=== PATIENT | female | born 1965 | race Caucasian/White ===

== ENCOUNTER → 2016-10-07 | Outpatient (CLI) | payer OTHER ==
--- NOTE | 2016-10-07 17:18 | Diagnostic Imaging Report ---
Bilateral screening mammogram. The current study was also evaluated with a Computer Aided Detection (CAD) system. INDICATION: Screening. No current complaints stated on the questionnaire. COMPARISON: 08/14/2015. FINDINGS: The breasts are composed of scattered fibroglandular densities. There are scattered benign-appearing calcifications. Allowing for technique and positional differences, no suspicious change is seen. IMPRESSION: No significant change. ACR BI-RADS Category 2: Benign findings. Result letter will be mailed to the patient. Note: At least 10% of breast cancer is not imaged by mammography. Dictated by: Dictated on workstation # [id number]
== END ==
LOC: RAD 11:15
PROVIDERS: ATTEND Internal Medicine
DX: Z12.31 Encounter for screening mammogram for malignant neoplasm of breast (principal)
CPT/HCPCS: 77067

== ENCOUNTER 2016-10-23 05:32 | Outpatient (CLI) | payer OTHER ==
[~2016-10-23] VITALS: Ht 160 cm; Wt 79.4 kg
[2016-10-23] MEDS ORDERED: hormone cream TOP (11:05)
[2016-10-23] MEDS ORDERED: OMG1KC PO (11:05)
[2016-10-23] MEDS ORDERED: [UNRECOGNIZED DRUG - OTHER] PO (11:05)
[2016-10-23] MEDS ORDERED: VITA1TAB17 PO (11:05)
[2016-10-23] MEDS ORDERED: CHOL10003 PO (11:05)
[2016-10-23] MEDS ORDERED: MAGN250T13 PO (11:05)
== END 2016-10-23 11:06 ==
LOC: PREOP 05:32
PROVIDERS: ATTEND Internal Medicine
DX: Z01.818 Encounter for other preprocedural examination (principal); Z12.11 Encounter for screening for malignant neoplasm of colon

== ENCOUNTER 2016-10-25 06:53 | Day surgery (SDC) | payer OTHER ==
--- NOTE | 2016-10-10 18:07 | HISTORY AND PHYSICAL ---
DATE OF SERVICE: 10/25/2016 The patient is a 51-year-old white female referred by Dr. Green for a screening colonoscopy. She seems to be of average risk. She is not aware of any family history for colon cancer. She does have a sister and an aunt who have been diagnosed with breast cancer postmenopausal. She denies diarrhea, constipation, bright red blood per rectum, melena, or abdominal pain. Her weight has been stable. PAST MEDICAL HISTORY: Has been relatively unremarkable. She did have history of reflux related lower esophageal stricture requiring dilatation per Dr. Hoffman in 2010. She currently denies recurrence of dysphagia and is not on acid blocking medication at this time. She denies any significant problems with heart burn. PAST SURGICAL HISTORY; Significant for total abdominal hysterectomy for benign reasons over 10 years ago, she has had bunion surgery in the distant past and has had a section. 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 She has no past smoking history and reports minimal alcohol intake. FAMILY HISTORY: As noted in the HPI. PHYSICAL EXAMINATION: Pleasant white female roughly 5 feet tall and weighing 180.4 pounds. Blood pressure is 136/88. Oral cavity reveals a Mallampati class II pharyngeal configuration. No erythema is noted. CHEST: Clear. CARDIOVASCULAR: Reveals regular rate and rhythm without murmur, S3 or S4. ABDOMEN: Soft, supple without mass, organomegaly or tenderness. EXTREMITIES: Reveal no cyanosis, clubbing or edema. ASSESSMENT: The patient was set up for screening colonoscopy on 10/25. Preop instructions of the SUPREP kit were given and questions were answered. I thank you for the referral of this pleasant lady. With review of this patient's electronic medical record in addition to the above evaluation a little over 45 minutes of care was spent by myself with other 15 minutes of staff time setting up colonoscopy and going over prep instructions. Job ID: [id number] DocumentID: [id number] Dictated Date: 10/10/2016 17:31:25 Microstrategy Developer Date: 10/10/2016 18:06:42 Dictated By: NEERAJ PEREYRA MD
[~2016-10-25] VITALS: Ht 160 cm; Wt 79.4 kg
[~2016-10-25 06:53] MED LIST: CHOL10003 PO; MAGN250T13 PO; OMG1KC PO; VITA1TAB17 PO; [UNRECOGNIZED DRUG - OTHER] PO; hormone cream TOP
[2016-10-25] MEDS ORDERED: 1/2 NS IV SOLUTION 1,000 ML IV STA (07:17)
[2016-10-25 07:19] VITALS: BP 131/88
[2016-10-25] MEDS ORDERED: FLUMAZENIL (ROMAZICON) 0.1 MG/ML 5 ML VIAL INJ PRN (07:30)
[2016-10-25] MEDS ORDERED: NALOXONE 0.4 MG/ML 1 ML (NARCAN) VIAL IVP PRN (07:30)
[2016-10-25] MEDS ORDERED: LIDOCAINE JELLY 2% (XYLOCAINE) 5 ML TUBE MM PRN (07:30)
--- NOTE | 2016-10-25 07:47 | Pre-Op Note & Conscious Sedat ---
Pre-Operative Progress Note H&P Reviewed The H&P was reviewed, patient examined and no changes noted. Date H&P Reviewed: October 25, 2016 Time H&P Reviewed: 07:47 Conscious Sedation Pre-Proced ASA Class: 1 Airway Mallampati Classification: ([place] appropriate class) I. II. III, IV Lungs Heart ASA score ASA 1: a normal healthy patient ASA 2: a patient with a mild systemic disease (mid diabetes, controlled hypertension, obesity ASA 3: a patient with a severe systemic disease that limits activity (angina , COPD, prior Myocardial infarction) ASA 4: a patient with an incapacitating disease that is a constant threat to life (CHF, renal failure) ASA 5: a moribund patient not expected to survive 24 hrs. (ruptured aneurysm) ASA 6: a declared brain patient whose organs are being harvested. For emergent operations, add the letter E after the classification Grade 2 Sedation Plan: Analgesia, Amnesia, Plan communicated to team members, Discussed options with patient/fam, Discussed risks with patient/fam Note The patient is an appropriate candidate to undergo the planned procedure, sedation, and anesthesia. The patient immediately re-assessed prior to indication. NEERAJ PEREYRA MD October 25, 2016 07:47
[2016-10-25] MEDS ORDERED: LIDOCAINE JELLY 2% (XYLOCAINE) 5 ML TUBE ONE (07:55)
[2016-10-25] MEDS ORDERED: fentaNYL INJECTION 100 MCG/2 ML AMP ONE ×2 (07:55→07:56)
[2016-10-25] MEDS ORDERED: MIDAZOLAM 2 MG/2 ML (VERSED) VIAL ONE ×2 (07:56)
[2016-10-25] MEDS: fentaNYL INJECTION 100 MCG/2 ML AMP IVP PRN ×2 (08:05→08:08)
[2016-10-25] MEDS: MIDAZOLAM 2 MG/2 ML (VERSED) VIAL IVP PRN ×2 (08:06→08:10)
[2016-10-25 08:45] VITALS: BP 113/74
[2016-10-25 09:10] VITALS: BP 129/93
[2016-10-25 10:16] VITALS: BP 129/93
--- NOTE | 2016-10-25 15:00 | OPERATIVE REPORT ---
DATE OF SERVICE: COLONOSCOPY SUMMARY The patient was placed in the left lateral decubitus position. Prior to doing screening colonoscopy, digital rectal evaluation was performed. Anal sphincter tone was normal. The perianal reflex is intact. Present that what corresponded to the dentate line was a polypoidal-type growth. Visualization was compatible with a prominent papilla versus benign anal papilloma. There was no evidence to suggest underlying neoplasia. No internal or external hemorrhoids were noted. The rectum, sigmoid colon, descending colon, transverse colon, ascending colon and cecum were unremarkable. No evidence for diverticular disease or vascular malformation or inflammatory change was noted. ASSESSMENT: No evidence for neoplasia was noted on today's evaluation. At the 12 o'clock position at about the level of the dentate line, was a 0.5 cm nodule with appearance compatible with either a prominent anal papilla or benign anal papilloma. No further therapy required. Would consider repeat screening colonoscopy in 10 years as the patient is not aware of any family history for colon cancer. I thank you for the referral of this pleasant lady. Sincerely Job ID: [id number] DocumentID: [id number] Dictated Date: 10/25/2016 11:36:56 Statuary Painter Date: 10/25/2016 15:00:33 Dictated By: NEERAJ PEREYRA MD MTDD
== END 2016-10-25 09:50 | disposition home or self-care (01) ==
LOC: ENDO 06:53
PROVIDERS: ATTEND Internal Medicine
DX: Z12.11 Encounter for screening for malignant neoplasm of colon (principal); D12.9 Benign neoplasm of anus and anal canal

== ENCOUNTER → 2017-10-23 | Outpatient (CLI) | payer OTHER ==
--- NOTE | 2017-10-23 18:43 | Diagnostic Imaging Report ---
INDICATION: Routine screening. COMPARISON: Comparison is made with prior mammograms from 10/07/2016 and 08/14/2015. TECHNIQUE: 2D and 3D bilateral screening mammography was performed with computer-aided detection (CAD) system. FINDINGS: Scattered fibroglandular densities are identified bilaterally. The parenchymal pattern is stable. No dominant mass or malignant appearing microcalcifications are seen. The axillae are unremarkable. IMPRESSION: No mammographic features suspicious for malignancy are identified. ACR BI-RADS Category 1: Negative. Result letter will be mailed to the patient. Note: At least 10% of breast cancer is not imaged by mammography. Dictated by: Dictated on workstation # [id number]
== END ==
LOC: RAD 13:31
PROVIDERS: ATTEND Internal Medicine
DX: Z12.31 Encounter for screening mammogram for malignant neoplasm of breast (principal)
CPT/HCPCS: 77067

== ENCOUNTER 2018-06-30 06:02 | Outpatient (CLI) | payer OTHER ==
[~2018-06-30] VITALS: Ht 160 cm; Wt 74.4 kg
== END 2018-06-30 13:14 | disposition home or self-care (01) ==
LOC: PREOP 06:02
PROVIDERS: ATTEND Podiatrist Foot & Ankle Surgery
DX: Z01.818 Encounter for other preprocedural examination (principal)

== ENCOUNTER → 2018-12-14 | Outpatient (CLI) | payer BC, OTHER ==
--- NOTE | 2018-12-15 15:25 | Diagnostic Imaging Report ---
INDICATION: Routine screening. COMPARISON: 10/24/2017 and 10/08/2016. TECHNIQUE: 2D and 3D bilateral screening mammography was performed with CAD. FINDINGS: Scattered fibroglandular densities are identified bilaterally. Benign appearing nodular densities in the right breast are stable. No new mass or malignant appearing microcalcifications are seen. The axillae are unremarkable. IMPRESSION: No mammographic features suspicious for malignancy are identified. ACR BI-RADS Category 2: Benign findings. Result letter will be mailed to the patient. Note: At least 10% of breast cancer is not imaged by mammography. Dictated by: Dictated on workstation # [id number]
== END ==
LOC: RAD 14:41
PROVIDERS: ATTEND Internal Medicine
DX: Z12.31 Encounter for screening mammogram for malignant neoplasm of breast (principal)
CPT/HCPCS: 77067

== ENCOUNTER 2019-02-05 15:20 | Outpatient (RCR) | payer BC ==
[2019-01-29 15:15] VITALS: BP 137/88
[2019-01-29] MEDS: FERRIC CARBOXYMALTOSE INJ 750 MG in NS (IVPB) 250 ML IV SCH (15:50)
[~2019-02-05] VITALS: Ht 160 cm; Wt 74.4 kg
[2019-02-05] MEDS: FERRIC CARBOXYMALTOSE INJ 750 MG in NS (IVPB) 250 ML IV SCH (15:35)
[2019-02-05 16:13] VITALS: BP 134/79
[2019-02-05 16:15] VITALS: BP 134/79
== END 2019-02-05 16:15 | disposition home or self-care (01) ==
LOC: SDC 15:20
PROVIDERS: ATTEND Internal Medicine
DX: D50.9 Iron deficiency anemia, unspecified (principal)

== ENCOUNTER 2019-07-27 05:29 | Outpatient (CLI) | payer BC ==
[~2019-07-27] VITALS: Ht 160 cm; Wt 84.5 kg
[2019-07-27] MEDS ORDERED: CHOL500061 PO (13:49)
== END 2019-07-27 14:07 | disposition home or self-care (01) ==
LOC: PREOP 05:29
PROVIDERS: ATTEND Podiatrist Foot & Ankle Surgery
DX: Z01.818 Encounter for other preprocedural examination (principal)

== ENCOUNTER 2019-08-02 06:16 | Day surgery (SDC) | payer BC ==
--- NOTE | 2019-07-24 15:53 | History & Physical ---
History of Present Illness HPI/Chief Complaint CC: Left foot surgery scheduled for 08/02/[address] Carrera HPI: This is a 54yoWF clinic patient of mine for 15 years who is very healthy and is compliant with yearly check ups and is preparing for left foot surgery to correct hammer toes and other modifications due to severe pain unresolved with conservative measures. Surgical benefits outweigh medical risks and it is prudent to proceed on with surgery as scheduled. Source: patient Exam Limitations: no limitations Date Seen 07/19/19 Time Seen by a Provider: 15:00 Attending Physician Alexandra Carrera Dpkathrine PCP Maribeth Green DO Referring Physician Date of Admission Home Medications & Allergies Home Medications Reviewed patient Home Medication Reconciliation performed by pharmacy medication reconciliations photonics engineering technician and/or nursing. Patients Allergies have been reviewed. Allergies Allergies Coded Allergies No Known Drug Allergies (Verified10/25/16) Past Vfatytb-Wogujn-Pzdsif Hx Past Med/Social Hx: Reviewed Nursing Past Med/Soc Hx, Reviewed and Corrections made Patient Social History Marrital Status: Employed/Student: employed Alcohol Use: Denies Use Smoking Status: Never a Smoker 2nd Hand Smoke Exposure: No Recent Hopitalizations: No Seasonal Allergies Seasonal Allergies: Yes Past Medical History Surgeries: Hysterectomy Hysterectomy alopecia History of Blood Disorders: No Review of Systems Constitutional: see HPI Musculoskeletal: other (left foot pain) Physical Exam Physical Exam Vital Signs Capillary Refill : Height, Weight, BMI Height: 5'3.00" Weight: 164lbs. 0.0oz. 74.356647po; 29.1 BMI Method: General Appearance: No Apparent Distress, WD/WN Eyes: Bilateral Eye Normal Inspection, Bilateral Eye PERRL HEENT: PERRL/EOMI, TMs Normal, Normal ENT Inspection, Pharynx Normal Neck: Full Range of Motion, Normal Inspection, Non Tender, Supple, Carotid Bruit Respiratory: Chest Non Tender, Lungs Clear, Normal Breath Sounds, No Accessory Muscle Use, No Respiratory Distress Cardiovascular: Regular Rate, Rhythm, No Edema, No Gallop, No JVD, No Murmur, Normal Peripheral Pulses Gastrointestinal: Normal Bowel Sounds, No Organomegaly, No Pulsatile Mass, Non Tender, Soft Back: Normal Inspection, No CVA Tenderness, No Vertebral Tenderness Extremity: Normal Capillary Refill, Normal Inspection, Normal Range of Motion, Non Tender, No Calf Tenderness, No Pedal Edema Neurologic/Psychiatric: Alert, Oriented x3, No Motor/Sensory Deficits, Normal Mood/Affect Skin: Normal Color, Warm/Dry Lymphatic: No Adenopathy Results Results/Procedures Labs Patient resulted labs reviewed. Assessment/Plan Admission Diagnosis Assessment: Right foot pain due to hammer toes in need of surgical correction per Dr Carrera 08/02/19 Chronic alopecia Plan: Proceed with surgery since surgical benefits outweigh medical risks Admission Status: Observation Diagnosis/Problems Diagnosis/Problems (1) Hallux valgus of left foot (2) Degenerative joint disease of left foot MARIBETH GREEN DO Jul 24, 2019 15:53
[~2019-08-02] VITALS: Ht 160 cm; Wt 84.5 kg
[2019-08-02] VITALS (11 sets, daily range): BP systolic 103–144; BP diastolic 67–89
[~2019-08-02 06:16] MED LIST changes: +CHOL500061 PO
[2019-08-02] MEDS ORDERED: LACTATED RINGERS 1,000 ML IV PRN (06:19)
[2019-08-02] MEDS ORDERED: ceFAZolin INJECTION 1,000 MG in WATER (STERILE) FOR INJECTION 10 ML IV ONE (06:30)
[2019-08-02] MEDS ORDERED: fentaNYL INJECTION 100 MCG/2 ML AMP ONE ×2 (07:12→09:37)
[2019-08-02] MEDS ORDERED: proPOfol 200 MG/20 ML (DIPRIVAN) VIAL IV ONE (07:12)
[2019-08-02] MEDS ORDERED: LIDOCAINE PF 2% 5 ML (XYLOCAINE) VIAL ONE (07:12)
[2019-08-02] MEDS ORDERED: SEVOFLURANE (ULTANE) 15 ML INHAL SOLN ONE ×11 (07:12→09:53)
[2019-08-02] MEDS ORDERED: DEXAMETHASONE 10 MG/ML (DECADRON) 1 ML VIAL ONE (07:12)
[2019-08-02] MEDS ORDERED: ONDANSETRON 4 MG/2 ML (SDV) Z0FRAN ONE (07:12)
[2019-08-02] MEDS ORDERED: MIDAZOLAM 2 MG/2 ML (VERSED) VIAL ONE (07:12)
[2019-08-02] MEDS ORDERED: BUPIVACAINE 0.5% 30 ML (SENSORCAINE) VIAL ONE (07:19)
[2019-08-02] MEDS ORDERED: LIDOCAINE 1% INJ 20 ML 20 ML VIAL ONE (07:19)
--- NOTE | 2019-08-02 07:39 | Progress Note-Pre Operative ---
Pre-Operative Progress Note H&P Reviewed The H&P was reviewed, patient examined and no changes noted. Date Seen by Provider: Aug 02, 2019 Time Seen by Provider: 07:39 Date H&P Reviewed: Aug 02, 2019 Time H&P Reviewed: 07:39 Pre-Operative Diagnosis: Hallux Rigidus, 2nd Hammertoe, left RODNEY,AMBERLY Q DPM Aug 02, 2019 07:39
[2019-08-02] MEDS ORDERED: LACTATED RINGERS 1,000 ML IV SCH (10:44)
--- NOTE | 2019-08-02 10:44 | Progress Note-Post Operative ---
Post-Operative Progess Note Surgeon (s)/Graphic Art Sales Representative (s) Surgeon AMBRELY STEVENS DPM Graphic Art Sales Representative: None Pre-Operative Diagnosis Hallux Rigidus, 2nd Hammertoe, left Post-Operative Diagnosis Same with failed hardware, left Procedure & Operative Findings Date of Procedure 08/02/19 Procedure Performed/Findings Removal of hardware, Arthrodesis of 1st MTPJ, 2nd toe reduction of Hammertoe, left foot Anesthesia Type General Estimated Blood Loss Estimated blood loss (mL): Minimal Specimens/Packing Specimens Removed None AMBERLY STEVENS DPM Aug 02, 2019 10:44
[2019-08-02] MEDS ORDERED: MEPERIDINE (DEMEROL) INJ 50 MG/ML IVP ONE (10:45)
[2019-08-02] MEDS ORDERED: ONDANSETRON 4 MG/2 ML (SDV) Z0FRAN IVP PRN (10:45)
[2019-08-02] MEDS ORDERED: morphine INJ 10 MG/ML 1ML (SYR OR VIAL) IVP ONE (10:45)
[2019-08-02] MEDS ORDERED: HYDROcodone/APAP 5 MG/325 MG (LORTAB) TAB PO PRN (10:45)
[2019-08-02] MEDS ORDERED: CEPH500C PO (10:47)
[2019-08-02] MEDS ORDERED: ACHD5005 PO ×2 (10:47→12:06)
--- NOTE | 2019-08-02 11:24 | Diagnostic Imaging Report ---
INDICATION: Postop changes to the foot. COMPARISON: None. FINDINGS: Two radiographic views of the left foot were obtained and show postsurgical changes of hallux valgus repair. Orthopedic side plate and screws are seen traversing the first metatarsal and proximal phalanx across the metatarsophalangeal joint space. Underlying osteotomy changes are noted. Ángel wires are also seen traversing the second toe. No unexpected radiopaque foreign bodies are identified. Degenerative changes of the tarsometatarsal joint spaces are present. IMPRESSION: 1. Postsurgical changes of the left foot as described above. Dictated by: Dictated on workstation # [id number]
[2019-08-02] MEDS ORDERED: HYDROcodone/APAP 5 MG/325 MG (LORTAB) TAB ONE (11:52)
--- NOTE | 2019-08-02 12:56 | Anesthesia-General Post-Op ---
General Patient Condition Mental Status/LOC: Same as Preop Cardiovascular: Satisfactory Nausea/Vomiting: Absent Respiratory: Satisfactory Pain: Controlled Complications: Absent Post Op Complications Complications None Follow Up Care/Instructions Patient Instructions None needed. Anesthesia/Patient Condition Patient Condition Patient is doing well, no complaints, stable vital signs, no apparent adverse anesthesia problems. No complications reported per nursing. CRYS MCKAY CRNA Aug 02, 2019 12:56
--- NOTE | 2019-08-02 16:11 | OPERATIVE REPORT ---
DATE OF SERVICE: 08/02/2019 SURGEON: Alexandra Carrera DPM PREOPERATIVE DIAGNOSES: 1. Hallux rigidus, left foot. 2. Hammer digit syndrome, left second digit. POSTOPERATIVE DIAGNOSES: 1. Hallux rigidus, left foot. 2. Hammer digit syndrome, left second digit. 3. Failed hardware. PROCEDURE: 1. Arthrodesis of the left first metatarsophalangeal joint. 2. Reduction of hammertoe, left second digit. 3. Removal of hardware, left first ray. WOUND CLASS: Clean. ANESTHESIA: General. HEMOSTASIS: Pneumatic thigh tourniquet at 250 mmHg. INDICATIONS: This 54-year-old female presents complaining of pain to the left foot. Conservative therapy is met with unsatisfactory results and the patient is agreeable to surgical intervention after risks and complications were discussed at length. No guarantees were extended to the patient and she is willing to proceed. DESCRIPTION OF PROCEDURE: The patient was brought back to the operating table, placed in secure supine position. Appropriate timeout was performed. Pneumatic thigh tourniquet was placed on the left lower extremity over several layers of padding. A general anesthetic was then induced. Local anesthetic was also administered utilizing aseptic technique and a Beebe block and a digital block to second toe utilizing 10 mL of 1:1 mixture of 1% Xylocaine, 0.5% Marcaine. The left foot was then prepped and draped in normal sterile manner. The left foot was then elevated, allowed to exsanguinate after which the tourniquet was inflated to 250 mmHg. Attention was then directed to the dorsal aspect of the left first metatarsophalangeal joint where a 6 cm longitudinal linear incision was created. The incision was deepened in the same plane with great care to identify and retract all vital neurovascular structures. Only necessary blood vessels were cauterized as encountered. The incision was deepened down to the capsular tissue where a longitudinal capsulotomy was performed. This demonstrated a subluxed left first metatarsophalangeal joint. Utilizing a power sagittal saw, power bur and rongeur, the dorsal medial eminence to the first metatarsal head were reduced as well as the dorsal, medial and lateral aspect of the base of the proximal phalanx. Extensor hallucis longus tendon lengthening was needed to be performed to allow for realignment of the first ray. A Z slide lengthening was performed at this time. Next, utilizing the [employer] surgical Gridlock plating system, the arthrodesis was performed to the left first metatarsophalangeal joint. First the guidewire was driven down the first metatarsal from the metatarsal head proximally for the cup and cone instrumentation allowing for exact articulation of the first metatarsophalangeal joint. Next, a fenestration was performed with a 1 mm drill bit to the first metatarsal head and base of the proximal phalanx. Next, a petite stepped metatarsophalangeal joint Gridlock plate from [employer] was then applied to the dorsal aspect of the first metatarsophalangeal joint, after which screws of 3.0 locking and unlocking were applied. First, the first screws were of 20, 16, and 10 mm. Once the digit was in alignment, the proximal screws were the most proximal was a 20, two nonlocking screw placed in the compression hole, after which the remaining proximal screws were a two 20 mm of length 3.0 locking screws. Excellent bony apposition and fixation was appreciated at this time. The wound was flushed with copious amounts of normal saline and closure was then performed. However, prior to closure and even the application of the current hardware, it was evident that the previous hardware was in the way would prevent appropriate alignment of the plating system. This warranted a removal of the K wire to the first metatarsal head as well as the 28-gauge monofilament wire to the base of the proximal phalanx. The wound was flushed once again after which closure was performed in layers. Deep closure was performed with 3-0 Vicryl, superficial with 4-0 Vicryl, skin closed with 4-0 Prolene in a horizontal mattress type stitch. Attention was then directed to the dorsal aspect of the left second toe where there is some lateral deviation noted at the middle phalanx. An incision from the proximal interphalangeal joint to the distal interphalangeal joint for approximately 1.5 cm was performed. The incision deepened down to the extensor tendon where a Z slide lengthening was performed. Periosteal dissection was carried out to the proximal arch to the middle phalanx where a wedge of bone was resected with the base medial and the lateral cortices was down to zero cut. After this wedge of bone was removed, the digit was now in appropriate alignment. The wound was flushed with copious amounts of normal saline. A 0.054 K wire was driven down the digit, securing the osteotomy in a closed position. Deep closure was then performed with 4-0 Vicryl, superficial with 4-0 Vicryl, skin closure with 4-0 Prolene in a horizontal mattress type stitch. Tourniquet was released noting appropriate cap refill time to all digits of the left foot. Postoperative injection consisted of 10 mL of 1:1 mixture of 1% Xylocaine, 0.5% Marcaine injected in local infusion to the surgical sites. Postoperative dressing consisted of Betadine soaked Adaptic, sterile 4 x 4, sterile Kerlix all secured with a Coban wrap. The patient tolerated the anesthesia and procedure well, was transported from the operating room to the recovery area with vital signs stable and vascular status intact to all digits of the left foot. She is to follow up in my office in 10 days' period of time or sooner if necessary. Job ID: [id number] DocumentID: [id number] Dictated Date: 08/02/2019 11:03:12 Truck Jumper Date: 08/02/2019 16:11:25 Dictated By: ALYCIA JACINTO
== END 2019-08-02 12:37 | disposition home or self-care (01) ==
LOC: SDC 06:16
PROVIDERS: ATTEND Podiatrist Foot & Ankle Surgery
DX: T84.84XA Pain due to internal orthopedic prosthetic devices, implants and grafts, initial encounter (principal); M20.22 Hallux rigidus, left foot; M20.42 Other hammer toe(s) (acquired), left foot; M19.072 Primary osteoarthritis, left ankle and foot; K21.9 Gastro-esophageal reflux disease without esophagitis; Z90.710 Acquired absence of both cervix and uterus; Z79.899 Other long term (current) drug therapy
CPT/HCPCS: 73620; 87081

== ENCOUNTER → 2020-03-09 | Outpatient (CLI) | payer BC ==
[~2020-03-09] MED LIST changes: +ACHD5005 PO; +CEPH500C PO
--- NOTE | 2020-03-10 09:42 | Diagnostic Imaging Report ---
INDICATION: Routine screening. COMPARISON is made with prior mammograms from 12/14/2018 and 10/23/2017. 2-D and 3-D bilateral screening mammography was performed with CAD. Scattered fibroglandular densities are identified bilaterally. The parenchymal pattern is stable. Benign nodular densities right breast are stable. There are benign calcifications present. No spiculated mass or malignant appearing microcalcifications are seen. Axillae are unremarkable. IMPRESSION: BI-RADS Category 2 No mammographic features suspicious for malignancy are identified. ACR BI-RADS Category 2: Benign findings. Result letter will be mailed to the patient. Note: At least 10% of breast cancer is not imaged by mammography. Dictated by: Dictated on workstation # [id number]
== END ==
LOC: RAD 14:45
PROVIDERS: ATTEND Internal Medicine
DX: Z12.31 Encounter for screening mammogram for malignant neoplasm of breast (principal)
CPT/HCPCS: 77063; 77067

== ENCOUNTER → 2020-03-28 | Outpatient (CLI) | payer BC ==
--- NOTE | 2020-03-28 13:31 | Diagnostic Imaging Report ---
INDICATION: Postmenopausal COMPARISON: None FINDINGS: The bone mineral density of hips and spine was measured. There are no prior studies for comparison. The T score for the spine is minus -1. This does indicate osteopenia. The total T score for the left hip is -1.4, for the right hip -1.5. The T score for the left femoral neck is -1.5 and for the right femoral neck -1.6. All of these values indicate osteopenia. AP Spine L1-L4: [BMD (g/cm2): 0.987] [T-Score: -1.8] [Z-Score: -1.7] [BMD Previous: NA] [BMD % Change: NA] LT Hip Neck: [BMD (g/cm2): 0.829] [T-Score: -1.5] [Z-Score: -1.0] LT Hip Total: [BMD (g/cm2):0.838] [T-Score:-1.4] [Z-Score: -1.3] [BMD Previous: NA] [BMD % Change: NA] RT Hip Neck: [BMD (g/cm2):0.821] [T-Score:-1.6] [Z-Score:-1.0] RT Hip Total: [BMD (g/cm2):0.818] [T-score:-1.5] [Z-Score:-1.4] [BMD Previous:NA] [BMD % Change:NA] *Indicates significant change from prior examination based on 95% confidence level. World Health Organization criteria for BMD interpretation classify patients as Normal (T-score at or above -1.0), Osteopenic (T-score between -1.0 and -2.5) or Osteoporotic (T-score at or below -2.5). LIMITATIONS AND MODIFICATION: None. FRACTURE RISK (FRAX SCORE): The ten year probability of (%): Major Osteoporotic Fracture: [6.6] Hip Fracture: [0.5] IMPRESSION: 1. There is osteopenia of the spine and the hips and the femoral necks. 2. 3. See below National Osteoporosis Foundation guidelines on when to potentially initiate pharmacologic therapy. Based on the National Osteoporosis Foundation Guidelines, pharmacologic treatment should be initiated in any of the following, unless clinical conditions suggest otherwise: * Any patient with prior fragility fracture of the hip or vertebrae. A spine fracture indicates 5X risk for subsequent spine fracture and 2X risk for subsequent hip fracture. * Osteoporosis (T-score <-2.5). * Postmenopausal women and men age 50 and older with low bone mass/osteopenia (T-score between -1.0 and -2.5) by DXA and 10-year major osteoporotic fracture greater than 20% or a 10-year probability of hip fracture greater than 3%. These fracture risks are supplied above in the FRAX score, if applicable. * Clinician judgement and/or patient preferences may indicate treatment for people with 10-year fracture probabilities above or below these levels. Dictated by: Dictated on workstation # [id number]
== END ==
LOC: RAD 13:00
PROVIDERS: ATTEND Internal Medicine
DX: M85.89 Other specified disorders of bone density and structure, multiple sites (principal)
CPT/HCPCS: 77080

== ENCOUNTER → 2020-04-05 | Outpatient (CLI) | payer BC ==
[~2020-04-05] MED LIST changes: +BARIUM for suspension 96% w/w (Vanilla Silq Medium Density) PO ONE; +BARIUM for suspension 98% w/w (Vanilla Silq High Density) PO ONE
--- NOTE | 2020-04-05 10:29 | Diagnostic Imaging Report ---
INDICATION: Dysphagia. TECHNIQUE: The patient ingested effervescent crystals as well as thin and thick barium and imaging of the esophagus was performed in multiple obliquities. 52 seconds of fluoroscopic time was utilized. FINDINGS: The preliminary radiograph of the chest is unremarkable. The esophagus has a smooth contour. No definite mass is identified. There is a short segment of mild to moderate narrowing of the distal esophagus just proximal to the GE junction. This may represent a mild stricture. No gastroesophageal reflux or hiatal hernia is demonstrated. IMPRESSION: Short segment of mild luminal narrowing of the distal esophagus, suggestive of a mild stricture. No mass lesion is detected. Dictated by: Dictated on workstation # [id number]
== END ==
LOC: RAD 09:00
PROVIDERS: ATTEND Surgery
DX: R13.10 Dysphagia, unspecified (principal)
CPT/HCPCS: 74220

== ENCOUNTER 2020-04-21 05:52 | Outpatient (RCR) | payer BC ==
[~2020-04-21] VITALS: Ht 157.5 cm; Wt 90.0 kg
[~2020-04-21 05:52] MED LIST changes: -BARIUM for suspension 96% w/w (Vanilla Silq Medium Density) PO ONE; -BARIUM for suspension 98% w/w (Vanilla Silq High Density) PO ONE; +FERR160T5 PO; +T COMPOUND PO; +[UNRECOGNIZED DRUG - OTHER] PO
== END 2020-04-21 10:28 | disposition home or self-care (01) ==
LOC: PREOP 05:52
PROVIDERS: ATTEND Surgery
DX: Z01.812 Encounter for preprocedural laboratory examination (principal); R13.10 Dysphagia, unspecified; Z20.828 Contact with and (suspected) exposure to other viral communicable diseases
CPT/HCPCS: 87635

== ENCOUNTER 2020-04-25 09:21 | Day surgery (SDC) | payer BC ==
[~2020-04-25] VITALS: Ht 157 cm; Wt 90.0 kg
[2020-04-25] VITALS (8 sets, daily range): BP systolic 123–145; BP diastolic 70–94
[2020-04-25] MEDS ORDERED: LACTATED RINGERS 1,000 ML IV ONE (09:27)
[2020-04-25] MEDS ORDERED: LACTATED RINGERS 1,000 ML IV STA (09:44)
[2020-04-25] MEDS ORDERED: HURRICAINE EXT TUBE (BENZOCAINE) XX PRN (09:45)
--- NOTE | 2020-04-25 10:19 | Progress Note-Pre Operative ---
Pre-Operative Progress Note H&P Reviewed The H&P was reviewed, patient examined and no changes noted. Date Seen by Provider: Apr 25, 2020 Time Seen by Provider: : Date H&P Reviewed: Apr 25, 2020 Time H&P Reviewed: :18 Pre-Operative Diagnosis: dysphagia LEXY PAYAN DO Apr 25, 2020 10:18
[2020-04-25] MEDS ORDERED: PROPOFOL INJECTION 50 ML IV ONE (10:33)
[2020-04-25] MEDS ORDERED: MIDAZOLAM 2 MG/2 ML (VERSED) VIAL ONE (10:33)
--- NOTE | 2020-04-25 11:07 | Progress Note-Post Operative ---
Post-Operative Progess Note Surgeon (s)/Sales Representative [employer] (s) Surgeon LEXY PAYAN DO Sales Representative [employer]: na Pre-Operative Diagnosis dysphagia Post-Operative Diagnosis antral ulcers, distal esophageal stricture Procedure & Operative Findings Date of Procedure 04/25/20 Procedure Performed/Findings egd c biopsies c dilation to 15 mm distal esophagus Anesthesia Type per senior environmental engineer Estimated Blood Loss Estimated blood loss (mL): none Specimens/Packing Specimens Removed antrum, ge LEXY PAYAN DO Apr 25, 2020 11:07
[2020-04-25] MEDS ORDERED: PANT40TA2 PO (11:08)
--- NOTE | 2020-04-25 11:09 | Discharge Inst-Simple/Standard ---
Discharge Inst-Standard Discharge Medications New, Converted or Re-Newed RX: Transmitted to Pharmacy Patient Instructions/Follow Up Plan of Care/Instructions/FU: 3 weeks Gianna Activity as Tolerated: Yes Discharge Diet: Regular Diet (ulcer diet) LEXY PAYAN DO Apr 25, 2020 11:09
--- NOTE | 2020-04-25 13:23 | Anesthesia-General Post-Op ---
MAC Patient Condition Mental Status/LOC: Same as Preop Cardiovascular: Satisfactory Nausea/Vomiting: Absent Respiratory: Satisfactory Pain: Controlled Complications: Absent Post Op Complications Complications None Follow Up Care/Instructions Patient Instructions None needed. Anesthesiology Discharge Order Discharge Order Patient is doing well, no complaints, stable vital signs, no apparent adverse anesthesia problems. No complications reported per nursing. ANSLEY DENNY CRNA Apr 25, 2020 13:23
--- NOTE | 2020-04-25 15:39 | OPERATIVE REPORT ---
DATE OF SERVICE: 04/25/2020 PREOPERATIVE DIAGNOSIS: Dysphagia. POSTOPERATIVE DIAGNOSIS: Antral ulcers and distal esophageal stricture. SURGEON: Lexy Katz DO. ANESTHESIA: Per BAR TACKER SEWING MACHINE. PROCEDURE PERFORMED: EGD with biopsies and dilatation to 15 mm of distal esophagus. ESTIMATED BLOOD LOSS: None. COMPLICATIONS: None. INDICATIONS FOR PROCEDURE: The patient is a 55-year-old female, who is having some dysphagia symptoms. She understands risks and benefits of the procedure and wished to proceed with the procedure. Consent was signed in the chart. DESCRIPTION OF PROCEDURE: The patient was taken to the endoscopy suite and placed in the left lateral recumbent position. Timeout was performed. Scope was inserted in the mouth, down the esophagus, stomach and into the duodenum without difficulty. There were no polyps, masses or ulcerations within the duodenum. Scope was slowly retracted back into the stomach, where in the antrum, there were multiple small ulcerations. Biopsy was obtained. Scope was retroflexed noting no other pathology. Scope was returned to its normal position, slowly withdrawn to distal esophagus. Biopsy of the GE junction was obtained. A slight stricture short segment in the distal esophagus. This area was dilated up to 15 mm and got a little bit of blood return, therefore, stopped any further dilatation. Scope was then slowly retracted back until completely removed noting no other pathology. The patient tolerated the procedure well without any complications. She was taken to the recovery room in stable condition. RECOMMENDATIONS: The patient was started on Protonix 40 mg daily. If symptoms return or no improvement, we would repeat EGD with further dilatation and reexamination. Job ID: [id number] DocumentID: [id number] Dictated Date: 04/25/2020 11:12:06 Print Line Feeder Date: 04/25/2020 15:37:59 Dictated By: LEXY KATZ DO
== END 2020-04-25 12:00 | disposition home or self-care (01) ==
LOC: ENDO 09:21
PROVIDERS: ATTEND Surgery
DX: K22.2 Esophageal obstruction (principal); K29.50 Unspecified chronic gastritis without bleeding; K31.89 Other diseases of stomach and duodenum; K25.9 Gastric ulcer, unspecified as acute or chronic, without hemorrhage or perforation; K21.9 Gastro-esophageal reflux disease without esophagitis; I10 Essential (primary) hypertension; E07.9 Disorder of thyroid, unspecified; Z79.899 Other long term (current) drug therapy; Z90.710 Acquired absence of both cervix and uterus; Z80.9 Family history of malignant neoplasm, unspecified
CPT/HCPCS: 88305; 88342

== ENCOUNTER 2020-09-04 22:18 | Emergency (ER) | payer BC ==
[~2020-09-04] VITALS: Ht 160 cm; Wt 86.2 kg
[~2020-09-04 22:18] MED LIST changes: +PANT40TA2 PO
[2020-09-04 22:47] LABS: BASOPHILS % (AUTO) 0 % (0-10); EOSINOPHILS # (AUTO) 0.1 10^3/uL (0.0-0.3); EOSINOPHILS % (AUTO) 2 % (0-10); HEMATOCRIT 40 % (35-52); HEMOGLOBIN 13.4 g/dL (11.5-16.0); LYMPHOCYTES # (AUTO) 1.4 10^3/uL (1.0-4.0); LYMPHOCYTES % (AUTO) 44 % (12-44); MEAN CORPUSCULAR HEMOGLOBIN 30 pg (25-34); MEAN CORPUSCULAR HGB CONC 34 g/dL (32-36); MEAN CORPUSCULAR VOLUME 89 fL (80-99); MEAN PLATELET VOLUME 8.8 fL (9.0-12.2); MONOCYTES # (AUTO) 0.3 10^3/uL (0.0-1.0); MONOCYTES % (AUTO) 9 % (0-12); NEUTROPHILS # (AUTO) 1.5 10^3/uL (1.8-7.8); NEUTROPHILS % (AUTO) 46 % (42-75); PLATELET COUNT 231 10^3/uL (130-400); WHITE BLOOD COUNT 3.3 10^3/uL (4.3-11.0)
[2020-09-04 22:54] LABS: ALBUMIN 4.3 GM/DL (3.2-4.5); CHLORIDE 103 MMOL/L (98-107)
[2020-09-04 22:55] LABS: POTASSIUM 3.9 MMOL/L (3.6-5.0); SODIUM 135 MMOL/L (135-145)
[2020-09-04 22:56] LABS: CALCIUM 9.4 MG/DL (8.5-10.1)
[2020-09-04 22:57] LABS: GLUCOSE 116 MG/DL (70-105); TOTAL PROTEIN 7.1 GM/DL (6.4-8.2)
[2020-09-04 22:58] LABS: CARBON DIOXIDE 21 MMOL/L (21-32)
[2020-09-04 22:59] LABS: BILIRUBIN,TOTAL 0.3 MG/DL (0.1-1.0)
[2020-09-04 23:00] LABS: ALKALINE PHOSPHATASE 92 U/L (40-136); CREATININE SERUM 0.73 MG/DL (0.60-1.30); GFR ESTIMATED > 60
[2020-09-04 23:01] LABS: BUN/CREATININE RATIO 12
[2020-09-04 23:03] LABS: ALANINE AMINOTRANSFERASE 28 U/L (0-55); MAGNESIUM 2.1 MG/DL (1.6-2.4)
[2020-09-04 23:04] LABS: CREATINE KINASE 129 U/L (29-168)
[2020-09-04 23:09] LABS: PROTHROMBIN TIME PATIENT 13.3 SEC (12.2-14.7)
[2020-09-04 23:10] LABS: FIBRIN DEGRADATION PRODUCTS < 0.27 UG/ML (0.00-0.49); PARTIAL THROMBOPLASTIN TIME 28 SEC (24-35)
[2020-09-04 23:11] LABS: CREATINE KINASE MB 2.6 NG/ML (<6.6)
[2020-09-04 23:23] LABS: TSH (THYROID ANALYZER) 4.13 UIU/ML (0.35-4.94)
[2020-09-05] MEDS ORDERED: RX-LORAZEPAM (ATIVAN) 0.5 MG TAB PPK#4 PO STA (00:01)
--- NOTE | 2020-09-05 00:03 | ED Cardiac General ---
History of Present Illness General Chief Complaint: Cardiac/General Problems Stated Complaint: HEART PALPITATIONS/ANXIETY ATTACK Nursing Triage Note: c/o intermittant palpatations, blurred vision earlier today, anxiety. Source: patient (SACHA DALEY DO) History of Present Illness Date Seen by Provider: Sep 04, 2020 Time Seen by Provider: 22:32 Initial Comments PT ARRIVES VIA POV FROM HOME STATES SHE HAS BEEN HAVING PALPITATIONS AND FEELING VERY ANXIOUS SINCE AROUND 1400 THIS AFTERNOON HAS BEEN HAVING SYMPTOMS OFF AND ON ALL DAY FEELS LIKE HER HEART IS RACING NO CHEST PAIN NO SHORTNESS OF BREATH NO DIZZINESS NO SYNCOPE NO NAUSEA/VOMITING NO SWEATS NO FEVER OR RECENT ILLNESS, NO COUGH, NO COVID SYMPTOMS OR KNOWN EXPOSURE NO SWELLING IN LEGS/ FEET OR PAIN IN CALVES. STATES HER BLOOD PRESSURE WAS HIGH 168/98, BUT PULSE WAS IN 70'S. DOES NOT TAKE ANY MEDICATIONS FOR BLOOD PRESSURE NO HISTORY OF SIMILAR NO CHANGE IN MEDICATIONS PT DID HAVE BRACES PUT ON FOR THE FIRST TIME ON FRIDAY, AND IS CAUSING HER MUCH STRESS AND ANXIETY DUE TO DIFFICULTY EATING, ETC. (SACHA DALEY DO) Allergies and Home Medications Allergies Coded Allergies: No Known Drug Allergies (Verified , 10/25/16) Home Medications Azithromycin 250 Mg Tablet, 250 MG PO UD TAKE 2 TABLETS ON DAY ONE THEN TAKE 1 TABLET DAILY FOR FOUR MORE DAYS Prescribed by: NIKITA GOMEZ on 09/05/20724 Cefdinir 300 Mg Capsule, 300 MG PO BID Prescribed by: NIKITA GOMEZ on 09/05/20 0725 Cholecalciferol (Vitamin D3) 5,000 Unit Tab.rapdis, 5,000 UNIT PO DAILY, (Repo rted) Ferrous Sulfate, Dried 160 Mg Tablet.er, 160 MG PO 3X A WEEK, (Reported) Magnesium Oxide 250 Mg Tablet, 250 MG PO DAILY, (Reported) [place] 3 Polyunsat Fatty Acids 1,000 Mg Cap, 1,000 MG PO DAILY, (Reported) Pantoprazole Sodium 40 Mg Tablet.dr, 40 MG PO DAILY Prescribed by: LEXY PAYAN on 04/25/20 1108 Vitamin B Complex 1 Each Tablet, 1 TAB PO DAILY, (Reported) [T3 And T4 Compound] , PO DAILY, (Reported) [hormone cream] , 1 UNIT TOP DAILY, (Reported) [hormone protect] , 1 TAB PO DAILY, (Reported) Patient Home Medication List Home Medication List Reviewed: Yes (SACHA DALEY DO) Review of Systems Review of Systems Constitutional: no symptoms reported; No chills, No diaphoresis, No dizziness, No fever, No malaise, No weakness EENTM: See HPI; No Ear Pain, No Nose Congestion, No Throat Pain Respiratory: No Symptoms Reported; Denies Shortness of Air Cardiovascular: See HPI; Denies Chest Pain, Denies Edema, Denies Lightheadedness; Palpitations; Denies Syncope Gastrointestinal: No Symptoms Reported; Denies Abdominal Pain, Denies Nausea, Denies Vomiting Genitourinary: No Symptoms Reported Musculoskeletal: no symptoms reported Skin: no symptoms reported Psychiatric/Neurological: See HPI Endocrine: No Symptoms Reported Hematologic/Lymphatic: No Symptoms Reported (SACHA DALEY DO) Past Maydopi-Ryrglw-Jzapcl Hx Past Med/Social Hx: Reviewed and Corrections made (SACHA DALEY DO) Patient Social History Alcohol Use: Rarely Uses Number of Drinks Today: AA Alcohol Beverage of Choice: Beer Smoking Status: Never a Smoker 2nd Hand Smoke Exposure: No Recent Infectious Disease Expo: No Recent Hopitalizations: No (SACHA DALEY DO) Immunizations Up To Date Tetanus Booster (TDap): Unknown (SACHA DALEY DO) Seasonal Allergies Seasonal Allergies: Yes (SACHA DALEY DO) Past Medical History Surgeries: Yes (bunionectomy, ) Hysterectomy, Oophorectomy, Orthopedic Respiratory: No Currently Using CPAP: No Currently Using BIPAP: No Cardiac: No Neurological: No : No Female Reproductive Disorders: Denies 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 0.0oz. 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 Norm as Tested, Other (MILDLY ANXIOUS) Skin: Normal Color, Warm/Dry (THUY,SACHA K DO) Progress/Results/Core Measures Results/Orders Lab Results Laboratory Tests Test 09/04/20 22:35 Range/Units White Blood Count 3.3 L 4.3-11.0 10^3/uL Red Blood Count 4.43 3.80-5.11 10^6/uL Hemoglobin 13.4 11.5-16.0 g/dL Hematocrit 40 35-52 % Mean Corpuscular Volume 89 80-99 fL Mean Corpuscular Hemoglobin 30 25-34 pg Mean Corpuscular Hemoglobin Concent 34 32-36 g/dL Red Cell Distribution Width 12.9 10.0-14.5 % Platelet Count 231 130-400 10^3/uL Mean Platelet Volume 8.8 L 9.0-12.2 fL Immature Granulocyte % (Auto) 0 % Neutrophils (%) (Auto) 46 42-75 % Lymphocytes (%) (Auto) 44 12-44 % Monocytes (%) (Auto) 9 0-12 % Eosinophils (%) (Auto) 2 0-10 % Basophils (%) (Auto) 0 0-10 % Neutrophils # (Auto) 1.5 L 1.8-7.8 10^3/uL Lymphocytes # (Auto) 1.4 1.0-4.0 10^3/uL Monocytes # (Auto) 0.3 0.0-1.0 10^3/uL Eosinophils # (Auto) 0.1 0.0-0.3 10^3/uL Basophils # (Auto) 0.0 0.0-0.1 10^3/uL Immature Granulocyte # (Auto) 0.0 0.0-0.1 10^3/uL Prothrombin Time 13.3 12.2-14.7 SEC INR Comment 1.0 0.8-1.4 Activated Partial Thromboplast Time 28 24-35 SEC D-Dimer < 0.27 0.00-0.49 UG/ML Sodium Level 135 135-145 MMOL/L Potassium Level 3.9 3.6-5.0 MMOL/L Chloride Level 103 98-107 MMOL/L Carbon Dioxide Level 21 21-32 MMOL/L Anion Gap 11 5-14 MMOL/L Blood Urea Nitrogen 9 7-18 MG/DL Creatinine 0.73 0.60-1.30 MG/DL Estimat Glomerular Filtration Rate > 60 BUN/Creatinine Ratio 12 Glucose Level 116 H 70-105 MG/DL Calcium Level 9.4 8.5-10.1 MG/DL Corrected Calcium 9.2 8.5-10.1 MG/DL Magnesium Level 2.1 1.6-2.4 MG/DL Total Bilirubin 0.3 0.1-1.0 MG/DL Aspartate Amino Transf (AST/SGOT) 32 5-34 U/L Alanine Aminotransferase (ALT/SGPT) 28 0-55 U/L Alkaline Phosphatase 92 40-136 U/L Total Creatine Kinase 129 29-168 U/L Creatine Kinase MB 2.6 <6.6 NG/ML Myoglobin 40.9 10.0-92.0 NG/ML Troponin I < 0.028 <0.028 NG/ML B-Type Natriuretic Peptide 17.4 <100.0 PG/ML Total Protein 7.1 6.4-8.2 GM/DL Albumin 4.3 3.2-4.5 GM/DL TSH [place] Testing 4.13 0.35-4.94 UIU/ML (NIKITA GOMEZ) Vital Signs/I&O 09/04/20 09/05/20 22:30 00:06 Temp 36.4 36.3 Pulse 72 71 Resp 16 12 B/P (MAP) 181/97 (125) 137/87 (125) Pulse Ox 98 94 O2 Delivery Room Air Room Air (NIKITA GOMEZ) Blood Pressure Mean: 125 Progress Progress Note : Progress Note UNEVENTFUL ER STAY. NO ARRHYTHMIAS DURING ER STAY. PT DID HAVE SENSATION OF RAPID HEART BEAT, BUT PULSE WAS REGULAR AND PT REMAINED IN NORMAL SINUS RHYTHM WITH RATE IN 70'S THROUGHOUT ER STAY. BLOOD PRESSURE DOWN SIGNIFICANTLY AT DISMISSAL WILL ORDER OUTPATIENT HOLTER MONITOR AND HAVE PT FOLLOW UP WITH DR. LAI FOR FURTHER EVALUATION. (SACHA DALEY DO) Progress Note : Time: 07:25 Progress Note 09/05/20 0700: Report from radiology received of a discrepancy noting a patchy infiltrate overlying the left upper lung which may relate to focal infiltrate versus atelectasis. Appears to be a change compared to prior examinations. Radiographic follow-up recommended in 2 to 3 weeks after appropriate therapy to ensure resolution. 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 Follow-up in [address] Lai for repeat x-ray. Return precautions if her symptoms were worsening. Patient acknowledged understanding. Labs were reviewed. D-dimer negative. No fever but she has had chills and her chronic morning cough. (NIKITA GOMEZ) Initial ECG Impression Date: Sep 04, 2020 Initial ECG Impression Time: 22:41 Initial ECG Rate: 72 Initial ECG Rhythm: Normal Sinus EKG : EKG Time: 23:38 Rhythm: Normal Sinus ECG Comparisson: Unchanged (SACHA DALEY DO) Departure Impression Primary Impression: Palpitations Additional Impressions: Anxiety Pneumonia Qualified Codes: J18.9 - Pneumonia, unspecified organism Labile hypertension Disposition: HOME, SELF-CARE Condition: Improved Departure-Patient Inst. Referrals: JUDY LAI DO (PCP/Family) Primary Care Physician Patient Instructions: Palpitations (DC) Add. Discharge Instructions: CONTINUE YOUR REGULAR MEDICATIONS PRESCRIBED CALL IN THE MORNING TO SCHEDULE HOLTER MONITOR FOLLOW UP WITH DR. LAI THIS WEEK FOR FURTHER CARE, RETURN TO ER IF WORSE All discharge instructions reviewed with patient and/or family. Voiced understanding. Scripts Azithromycin (Azithromycin) 250 Mg Tablet 250 MG PO UD, #6 TAB 0 Refills TAKE 2 TABLETS ON DAY ONE THEN TAKE 1 TABLET DAILY FOR FOUR MORE DAYS Prov: NIKITA GOMEZ 09/05/20 Cefdinir (Cefdinir) 300 Mg Capsule 300 MG PO BID for 10 Days, #20 CAP 0 Refills Prov: NIKITA GOMEZ 09/05/20 SACHA DALEY DO Sep 05, 2020 00:03 NIKITA GOMEZ Sep 05, 2020 07:26
[2020-09-05 00:06] VITALS: BP 137/87
--- NOTE | 2020-09-05 07:22 | Diagnostic Imaging Report ---
INDICATION: Palpitations. COMPARISON: 04/05/2020. TECHNIQUE: Single radiograph of the chest dated 09/04/2020 FINDINGS: The cardiac silhouette is within normal limits in size. No significant pulmonary vascular congestion. Patchy opacities are identified overlying the left upper lung, which appear new from the prior examination. The lungs otherwise appear clear. No pleural effusion. No pneumothorax. No acute osseous abnormality. IMPRESSION: New patchy opacities overlying the left upper lung which may relate to focal infiltrate versus atelectasis. This appears to be a change from the prior examination. Therefore, radiographic follow-up is recommended in 2-3 weeks after appropriate therapy to ensure resolution. Report was faxed and called to [facility] ER, Dr. Patel by gagan at 7:18am. ERICA Gutierrez, was also notified. Dictated by: Dictated on workstation # [id number]
[2020-09-05] MEDS ORDERED: AZIT250T12 PO (07:25)
[2020-09-05] MEDS ORDERED: CEFD300C3 PO (07:25)
== END 2020-09-05 00:06 | disposition home or self-care (01) ==
LOC: EDUNIT# 22:18 → ER 22:20
DX: J18.9 Pneumonia, unspecified organism (principal); F41.9 Anxiety disorder, unspecified
CPT/HCPCS: 36415; 71045; 80053; 82550; 82553; 83735; 83874; 83880; 84443; 84484; 85025; 85379; 85610; 85730; 93005; 93041

== ENCOUNTER → 2021-03-22 | Outpatient (CLI) | payer BC ==
[~2021-03-22] MED LIST changes: +AZIT250T12 PO; +CEFD300C3 PO
--- NOTE | 2021-03-23 14:19 | Diagnostic Imaging Report ---
INDICATION: Routine screening. COMPARISON is made with prior mammogram from 03/09/2020 and 12/14/2018. 2-D and 3-D bilateral screening mammography was performed with CAD. Scattered fibroglandular densities are identified bilaterally. A benign nodule in the upper right breast is stable. There are benign calcifications present. No spiculated mass or malignant-appearing microcalcifications are identified. Axillae are unremarkable. IMPRESSION: BI-RADS Category 2. No mammographic features suspicious for malignancy are identified. ACR BI-RADS Category 2: Benign findings. Result letter will be mailed to the patient. Note: At least 10% of breast cancer is not imaged by mammography. Dictated by: Dictated on workstation # [id number]
== END ==
LOC: RAD 15:34
PROVIDERS: ATTEND Internal Medicine
DX: Z12.31 Encounter for screening mammogram for malignant neoplasm of breast (principal)
CPT/HCPCS: 77063; 77067

== ENCOUNTER → 2022-03-25 | Outpatient (CLI) | payer BC ==
--- NOTE | 2022-03-26 13:39 | Diagnostic Imaging Report ---
INDICATION: Routine screening. COMPARISON: 03/22/2021 and 03/09/2020. TECHNIQUE: 2D and 3D bilateral screening mammography was performed with CAD. FINDINGS: Scattered fibroglandular densities are identified bilaterally. A benign-appearing nodule in the upper inner right breast at mid depth appears stable. Punctate calcifications in the upper left breast appear stable. No spiculated mass or malignant appearing microcalcifications are seen. The axillae are unremarkable. IMPRESSION: No mammographic features suspicious for malignancy are identified. ACR BI-RADS Category 2: Benign findings. Result letter will be mailed to the patient. Note: At least 10% of breast cancer is not imaged by mammography. Dictated by: Dictated on workstation # [id number]
== END ==
LOC: RAD 15:23
PROVIDERS: ATTEND Internal Medicine
DX: Z12.31 Encounter for screening mammogram for malignant neoplasm of breast (principal)
CPT/HCPCS: 77063; 77067

== ENCOUNTER → 2023-03-27 | Outpatient (CLI) | payer BC ==
--- NOTE | 2023-03-28 09:10 | Diagnostic Imaging Report ---
INDICATION: Routine screening COMPARISON is made with prior mammograms of 03/25/2022 and 03/22/2021. 2-D and 3-D bilateral screening mammography was performed with CAD. Scattered fibroglandular densities are identified bilaterally. The parenchymal pattern is stable. No mass or malignant-appearing microcalcifications are seen. Occasional benign calcifications are noted. Axillae are unremarkable. IMPRESSION: BI-RADS Category 2 No mammographic features suspicious for malignancy are identified. ACR BI-RADS Category 2: Benign findings. Result letter will be mailed to the patient. Note: At least 10% of breast cancer is not imaged by mammography. Dictated by: Dictated on workstation # [id number]
== END ==
LOC: RAD 15:45
PROVIDERS: ATTEND Internal Medicine
DX: Z12.31 Encounter for screening mammogram for malignant neoplasm of breast (principal)
CPT/HCPCS: 77063; 77067